=== PATIENT | female | born 1970 | race Caucasian/White ===

== ENCOUNTER 2017-04-05 12:55 | Emergency (ER) | payer SELFPAY ==
[2017-04-05 12:59] VITALS: BP 141/74; PULSE 81; RESP 15; TEMP 98.2; O2SAT 99
--- NOTE | 2017-04-05 13:23 | PD ---
HPI Chief Complaint: Oral / Dental Pain or Problem Time Seen by Provider: 13:20 Travel History International Travel<30 days: No Contact w/Intl Traveler<30days: No Traveled to known affect area: No History of Present Illness HPI 46-year-old female presents the emergency department with dental pain and swelling to the left lower jaw with pain at a #19 tooth. Patient states has been progressing over the past week. She is denying fever or chills, but has increased pain with trying to eat or open her jaw. Patient states the pain is radiating to her left ear and temporal. She denies difficulty swallowing or problems with the throat. She states history of narcotic abuse so she is requesting no narcotics at this visit. She has no local dentist. She has no known drug allergies. [facility] Social History Alcohol Use: Yes Tobacco Use: No Substance Use: No Allergies-Medications (Allergen,Severity, Reaction): Coded Allergies: No Known Allergies (Unverified , 04/05/17) Reported Meds & Prescriptions Reported Meds & Active Scripts Active Penicillin V Potassium 500 Mg Tab 500 Mg PO Q6H 10 Days Magic Mouthwash Adult Liq (Multi-Ingredient Mouthwash/Gargle) 120 Ml Susp 5 Ml SWISH-SWAL ACHS Each 5 mL contains: Nystatin 200,000 units, Diphenhydramine 4.25 mg, Viscous Lidocaine 10 mg, Marie syrup 0.8 mL Ibuprofen 600 Mg Tab 600 Mg PO Q6H PRN Non-Aspirin Pain Relief ES (Acetaminophen) 500 Mg Tab 1,000 Mg PO Q6HR PRN Review of Systems Except as stated in HPI: all other systems reviewed are Neg General / Constitutional: No: Fever Eyes: No: Visual changes HENT: Positive: Dental Difficulties, Earache, No: Headaches, Vertigo, Lightheadedness, Sore Throat, Rhinitis, Rhinorrhea, Congestion, Nosebleed, Neck Stiffness, Neck Pain, Ear Discharge Cardiovascular: No: Chest Pain or Discomfort Respiratory: No: Shortness of Breath Gastrointestinal: No: Abdominal Pain Genitourinary: No: Dysuria Musculoskeletal: No: Pain Skin: No Rash Neurologic: No: Weakness Psychiatric: No: Depression Endocrine: No: Polydipsia Hematologic/Lymphatic: No: Easy Bruising Physical Exam Narrative GENERAL: Patient appears in mild to moderate distress. SKIN: Warm and dry. Normal color. Normal turgor. No rash. No erythema. HEAD: Atraumatic. Normocephalic. Patient has obvious swelling to the left lower jaw consistent with history. EYES: Pupils equal and round. No scleral icterus. No injection or drainage. ENT: No nasal bleeding or discharge. Mucous membranes pink and moist. Patient has very poor dental health with multiple caries and cracked teeth. The left lower gingiva is noted to be swollen without erythema at the #19 tooth region. TMs are clear. Pharynx appears normal, uvula is midline. NECK: Trachea midline. Supple, with mild left anterior lymphadenopathy without signs of Gaston's angina. CARDIOVASCULAR: Regular rate and rhythm. RESPIRATORY: No accessory muscle use. Clear to auscultation. Breath sounds equal bilaterally. MUSCULOSKELETAL: Extremities without clubbing, cyanosis, or edema. No obvious deformities. NEUROLOGICAL: Awake and alert. No obvious cranial nerve deficits. Motor grossly within normal limits. Five out of 5 muscle strength in the arms and legs. Normal speech. PSYCHIATRIC: Appropriate mood and affect; insight and judgment normal. Data Data Last Documented VS Vital Signs Date Time Temp Pulse Resp B/P Pulse Ox O2 Delivery O2 Flow Rate FiO2 04/05/17 12:59 98.2 81 15 141/74 99 Orders Penicillin V Potassium (Veetids) (04/05/17 13:30) Ibuprofen (Motrin) (04/05/17 13:30) MDM Medical Decision Making Medical Screen Exam Complete: Yes Emergency Medical Condition: Yes Medical Record Reviewed: Yes Differential Diagnosis Dental pain. Dental abscess. Dental caries. Narrative Course Patient is medically stable at time of exam. Patient is given first dose of Pen-Vee K 500 mg by mouth. Patient is given ibuprofen 800 mg by mouth. Patient will be continued on Pen-Vee K 4 times a day 10 days. Patient is given a prescription for ibuprofen 600 mg 4 times a day #40. Patient is also given acetaminophen 500 mg 2 tabs every 6 hours when necessary pain #60. Patient is given a prescription for Magic mouthwash as directed 120 mL to 1 refill. Patient is given dental resources to follow for further evaluation and treatment. Patient can follow-up here in the emergency department if symptoms worsen as discussed. Diagnosis Primary Impression: Dental abscess Referrals: Dentist Patient Instructions: Dental Abscess (ED), General Instructions Additional Instructions: Patient is medically stable at time of exam. Patient is given first dose of Pen-Vee K 500 mg by mouth. Patient is given ibuprofen 800 mg by mouth. Patient will be continued on Pen-Vee K 4 times a day 10 days. Patient is given a prescription for ibuprofen 600 mg 4 times a day #40. Patient is also given acetaminophen 500 mg 2 tabs every 6 hours when necessary pain #60. Patient is given a prescription for Magic mouthwash as directed 120 mL to 1 refill. Patient is given dental resources to follow for further evaluation and treatment. Patient can follow-up here in the emergency department if symptoms worsen as discussed. Scripts Penicillin V Potassium 500 Mg Dch540 Mg PO Q6H 10 Days Prov:Isaias Ryan MD 04/05/17 Srrtihhr-Wjeebskgpgpxnzi-Mlctvpyhx Liq (Magic Mouthwash Adult Liq)120 Ml Susp5 Ml SWISH-SWAL ACHS #120 ML Ref 1 Each 5 mL contains: Nystatin 200,000 units, Diphenhydramine 4.25 mg, Viscous Lidocaine 10 mg, Marie syrup 0.8 mL Prov:Isaias Ryan MD 04/05/17 Ibuprofen 600 Mg Vuc256 Mg PO Q6H PRN (Pain/Inflammation) #40 TAB Prov:Isaias Ryan MD 04/05/17 Acetaminophen (Non-Aspirin Pain Relief ES)500 Mg Tab1,000 Mg PO Q6HR PRN (PAIN) #60 TAB Prov:Isaias Ryan MD 04/05/17 Disposition: 01 DISCHARGE HOME Condition: Stable Matty Daniel Apr 05, 2017 13:23
[2017-04-05] MEDS ORDERED: PENICILLIN V POTASSIUM 500 MG TAB PO ONE (13:30)
[2017-04-05] MEDS ORDERED: IBUPROFEN 800 MG TAB PO ONE (13:30)
[2017-04-05] MEDS ORDERED: NON-500T13 PO (13:31)
[2017-04-05] MEDS ORDERED: PENI500T PO (13:31)
[2017-04-05] MEDS ORDERED: MAGICADU2 SWISH-SWAL (13:31)
[2017-04-05] MEDS ORDERED: IBUP-232 PO (13:31)
[2017-04-05] MEDS ORDERED: KETOROLAC TROMETHAMINE 60 MG/2 ML (IM) VIAL IM ONE (13:45)
== END 2017-04-05 13:50 | disposition home or self-care (01) ==
LOC: NEPK 12:55
DX: K04.7 Periapical abscess without sinus (principal)
CPT/HCPCS: 96372; 99284; J1885

== ENCOUNTER 2017-05-09 09:03 | Emergency (ER) | payer MEDICAID ==
[~2017-05-09] VITALS: Ht 160 cm; Wt 83.0 kg
[~2017-05-09 09:03] MED LIST: IBUP-232 PO; MAGICADU2 SWISH-SWAL; NON-500T13 PO; PENI500T PO
[2017-05-09 09:11] VITALS: BP 129/67; PULSE 80; RESP 16; TEMP 97.9; O2SAT 97
--- NOTE | 2017-05-09 09:44 | PD ---
HPI Chief Complaint: Oral / Dental Pain or Problem Time Seen by Provider: 09:19 Travel History International Travel<30 days: No Contact w/Intl Traveler<30days: No Traveled to known affect area: No History of Present Illness HPI 46yo F with multiple missing teeth and dental caries here with c/o left jaw swelling and pain today. States a few days ago she had some dental pain but went away. Denies any trauma, fever, chest pain, sob, n/v, abdominal pain, focal weakness or numbness. Pt states she took some acetaminophen this morning. States pain radiates from left jaw to left ear and has mild headache on left side. Has not eaten or drank anything today. Pt was seen here for similar complaints on 04/05/17. PFSH Past Medical History ?: Not Social History Alcohol Use: Yes Tobacco Use: No Substance Use: No Allergies-Medications (Allergen,Severity, Reaction): Coded Allergies: No Known Allergies (Unverified , 05/09/17) Reported Meds & Prescriptions Reported Meds & Active Scripts Active No Active Prescriptions or Reported Medications Review of Systems Except as stated in HPI: all other systems reviewed are Neg Physical Exam Narrative GENERAL: 46yo F in mild distress. SKIN: Focused skin assessment warm/dry. HEAD: Atraumatic. Normocephalic. EYES: Pupils equal and round. No scleral icterus. No injection or drainage. ENT: No nasal bleeding or discharge. Mucous membranes pink and moist. TM wnl bilaterally. MOUTH: Multiple missing tooth in left lower mouth. Mild ttp buccal region where tooth 17, 18 is suppose to be. No elevation of tongue. Patent airway. No sublingual swelling. NECK: Mild swelling in angle of left mandible ttp. No erythema. CARDIOVASCULAR: Regular rate and rhythm. No murmur appreciated. RESPIRATORY: No accessory muscle use. Clear to auscultation. Breath sounds equal bilaterally. GASTROINTESTINAL: Abdomen soft, non-tender, nondistended. MUSCULOSKELETAL: No obvious deformities. No clubbing. No cyanosis. No edema. NEUROLOGICAL: Awake and alert. No obvious cranial nerve deficits. Motor grossly within normal limits. Normal speech. PSYCHIATRIC: Appropriate mood and affect; insight and judgment normal. Data Data Last Documented VS Vital Signs Date Time Temp Pulse Resp B/P (MAP) Pulse Ox O2 Delivery O2 Flow Rate FiO2 05/09/17 09:11 97.9 80 16 129/67 (87) 97 Orders Orders Complete Blood Count With Diff (05/09/17 09:30) Basic Metabolic Panel (Bmp) (05/09/17 09:30) Ct Soft Tiss Neck W Iv Cont (05/09/17 ) Ketorolac Inj (Toradol Inj) (05/09/17 09:45) Iohexol 350 Inj (Omnipaque 350 Inj) (05/09/17 10:15) Labs Laboratory Tests Test 05/09/17 09:39 White Blood Count 9.2 TH/MM3 Red Blood Count 4.41 MIL/MM3 Hemoglobin 13.6 GM/DL Hematocrit 40.2 % Mean Corpuscular Volume 91.0 FL Mean Corpuscular Hemoglobin 30.9 PG Mean Corpuscular Hemoglobin Concent 33.9 % Red Cell Distribution Width 12.3 % Platelet Count 277 TH/MM3 Mean Platelet Volume 7.5 FL Neutrophils (%) (Auto) 62.4 % Lymphocytes (%) (Auto) 27.1 % Monocytes (%) (Auto) 6.8 % Eosinophils (%) (Auto) 3.1 % Basophils (%) (Auto) 0.6 % Neutrophils # (Auto) 5.7 TH/MM3 Lymphocytes # (Auto) 2.5 TH/MM3 Monocytes # (Auto) 0.6 TH/MM3 Eosinophils # (Auto) 0.3 TH/MM3 Basophils # (Auto) 0.1 TH/MM3 CBC Comment DIFF FINAL Differential Comment Blood Urea Nitrogen 6 MG/DL Creatinine 0.58 MG/DL Random Glucose 81 MG/DL Calcium Level 8.1 MG/DL Sodium Level 141 MEQ/L Potassium Level 4.0 MEQ/L Chloride Level 109 MEQ/L Carbon Dioxide Level 23.5 MEQ/L Anion Gap 9 MEQ/L Estimat Glomerular Filtration Rate 112 ML/MIN [facility] Medical Decision Making Medical Screen Exam Complete: Yes Emergency Medical Condition: Yes Differential Diagnosis Cellulitis vs. abscess vs. reactive lymphadenopathy Narrative Course 46yo F with sudden onset left jaw swelling and pain. Pt had tooth pain before but no tooth pain now and no tooth pain on exam. Pt is nontoxic appearing. Labs reviewed, no leukocytosis. BMP unremarkable. CT soft tissue neck showed mild cellulitic changes in left cheek and jaw. Mild, likely reactive lymph node prominence. Pt given toradol which help with pain. States ear pain, jaw pain and headache has resolved. Will prescribe clindamycin for cellulitis. Return precautions given. Diagnosis Primary Impression: Facial cellulitis Patient Instructions: General Instructions Departure Forms: Tests/Procedures Additional Instructions: Please follow up with a dentist in 3-7 days. Return to the ED if symptoms worsen. Med/Other Pt SpecificInfo: Prescription(s) given Scripts Ibuprofen (Ibuprofen) 600 Mg Tab 600 MG PO Q8H Y for PAIN, #20 TAB 0 Refills Prov: Magda Bentley DO 05/09/17 Clindamycin (Clindamycin) 300 Mg Cap 300 MG PO Q6H for Infection for 7 Days, CAP 0 Refills Prov: Magda Bentley DO 05/09/17 Disposition: 01 DISCHARGE HOME Condition: Stable Magda Bentley DO May 09, 2017 09:44
[2017-05-09] MEDS ORDERED: KETOROLAC TROMETHAMINE 30 MG/ML (IVP) VIAL IV PUSH ONE (09:45)
[2017-05-09 09:46] LABS: AUTOMATED NEUTROPHIL # 5.7 TH/MM3 (1.8-7.7); BASOPHIL # 0.1 TH/MM3 (0-0.2); BASOPHIL % 0.6 % (0.0-2.0); EOSINOPHIL # 0.3 TH/MM3 (0-0.4); EOSINOPHIL % 3.1 % (0.0-4.0); HEMATOCRIT 40.2 % (35.0-46.0); HEMO FLAGS DIFF FINAL; LYMPH % 27.1 % (9.0-44.0); LYMPHOCYTE # 2.5 TH/MM3 (1.0-4.8); MEAN CORPUSCULAR HEMOGLOBIN 30.9 PG (27.0-34.0); MEAN CORPUSCULAR HGB CONC 33.9 % (32.0-36.0); MONO % 6.8 % (0.0-8.0); NEUT % 62.4 % (16.0-70.0); PLATELET COUNT 277 TH/MM3 (150-450); RED BLOOD COUNT 4.41 MIL/MM3 (4.00-5.30); RED CELL DISTRIBUTION WIDTH 12.3 % (11.6-17.2); WHITE BLOOD COUNT 9.2 TH/MM3 (4.0-11.0)
[2017-05-09 10:12] LABS: BICARBONATE 23.5 MEQ/L (21.0-32.0)
[2017-05-09] MEDS ORDERED: IOHEXOL 350 MG/ML 10 ML VIAL (for RAD DIAG) IVCONTRAST ONE (10:15)
--- NOTE | 2017-05-09 10:57 | RADRPT ---
EXAM DATE/TIME: 05/09/2017 10:07 [place] COMPARISON: No previous studies available for comparison. INDICATIONS : Left jaw pain and swelling. IV CONTRAST: 60 cc Omnipaque 350 (iohexol) IV RADIATION DOSE: 14.33 CTDIvol (mGy) MEDICAL HISTORY : None SURGICAL HISTORY : None. ENCOUNTER: Initial ACUITY: 1 day PAIN SCALE: 4/10 LOCATION: Left facial TECHNIQUE: Volumetric scanning of the neck was performed. Using automated exposure control and adjustment of th e mA and/or kV according to patient size, radiation dose was kept as low as reasonably achievable to obtain optimal diagnostic quality images. DICOM format image data is available electronically for r eview and comparison. FINDINGS: There is mild induration of the superficial and deep subcutaneous tissues of the left cheek and jaw r egion. There is no evidence of discrete mass or collection. There are some mildly prominent submandib ular lymph nodes adjacent to this region, superficial to the normal appearing submandibular salivary gland. Elsewhere in the neck, there are a multitude of small jugular chain and posterior lymph nodes present on both sides, none pathologic by CT size criteria or specific appearance. The largest node o n the right side measures 9 mm. The visualized brain and orbital structures are unremarkable. There is mild occasional mucosal thicke karen in the facial sinuses. The upper aerodigestive tract is symmetric and benign. Thyroid is unremar kable for CT appearance. The supraclavicular regions and upper mediastinum are normal. Lung apices ar e clear. The bony elements are intact. CONCLUSION: Mild cellulitic changes in the left cheek and jaw. Mild, likely reactive lymph node prominence. Juan Alberto Diaz MD on May 09, 2017 at 10:45 Board Certified Radiologist. This report was verified electronically.
[2017-05-09] MEDS ORDERED: CLIN1CAP6 PO (11:10)
[2017-05-09] MEDS ORDERED: IBUP-232 PO (11:10)
== END 2017-05-09 11:20 | disposition home or self-care (01) ==
LOC: PHED 09:03
DX: L03.211 Cellulitis of face (principal)
CPT/HCPCS: 70491; 80048; 85025; 96374; 99285; J1885; Q9967